=== PATIENT | female | born 1950 | race Asian ===

== ENCOUNTER → 2021-02-23 10:12 | Outpatient (CLI) | payer MEDICARE, SELFPAY ==
[2021-02-23 12:12] LABS: COVID19 -Nasal RAPID Negative (Negative)
== END ==
PROVIDERS: PCP Registered Nurse; Visit Provider Surgery
DX: Z01.812 Encounter for preprocedural laboratory examination (principal); Z20.822 Contact with and (suspected) exposure to COVID-19
CPT/HCPCS: 87635; C9803

== ENCOUNTER 2021-02-25 11:52 | Day surgery (SDC) | payer MEDICARE, SELFPAY ==
--- NOTE | 2021-02-25 | PATH_ITS ---
[facility] Accession Number: [id number] . 01 Material submitted: . PART A: colon - ASCENDING COLON PART B: colon - TRANSVERSE COLON . 02 Diagnosis: A. Ascending Colon, Biopsy: Tubular adenoma. . B. 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 Please see comment. . [facility] 03/02/2021 1613 Local . 02 Comment: B. Surveillance guidelines recommend that a sessile serrated adenoma with cytological dysplasia should be treated similar to an advanced adenoma. Complete polypectomy and shortened surveillance interval are recommended. . 02 Electronically signed: . Jacqueline Lopez MD, Pathologist NPI- [id number] . 01 Gross description: . Part A: ASCENDING COLON: Received in formalin are multiple fragment(s) of simental, soft tissue measuring 1.7 x 0.8 x 0.5 cm in aggregate submitted entirely in 1 cassette(s) Part B: TRANSVERSE COLON: Received in formalin are 5 fragment(s) of simental, soft tissue measuring 0.7 x 0.4 x 0.2 cm to 0.3 x 0.2 x 0.1 cm submitted entirely in 1 cassette(s) /QBJ 02/27/2021 0605 Local . 02 Pathologist provided ICD-10: D12.2, D12.3 . 02 CPT . 978855, 497765 Performed at: 01 [facility] [address] [id number] MD Jimmy Miramontes MD Phone: [phone] Performed at: 02 [facility] [address] [place] [id number] MD Jacqueline Lopez MD Phone: [phone]
[2021-02-25] MEDS: LACTATED RINGERS 1,000 ML 200 ML IV (12:18)
[2021-02-25 12:19] VITALS: BP 147/75; PULSE 80; RESP 18; TEMP 37; O2SAT 98; BMI 28.3
--- NOTE | 2021-02-25 13:12 | P.HP_ITS ---
History of Present Illness History of Present Illness Date Patient Seen: 02/25/21 Time Patient Seen: 13:13 Chief complaint: Screening colonoscopy Narrative: The patient presents for colorectal sreening. She had previous colonoscopy 5 years ago demonstrated benign polyps. No personal or family history of colon cancer. On further history denies any recent gastrointestinal symptoms. No nausea, vomiting, abdominal pain, loss of appetite, unexplained weight loss, change in bowel habits, diarrhea, constipation, melena, hematochezia, or bright red blood per rectum. Patient History Medical History (Updated 12/30/20 @ 19:38 by Nadeen Dale) Colon polyps Dyspareunia Screening for malignant neoplasm of colon Vaginal dryness Family & Social History Family History (Updated 12/30/20 @ 19:39 by Nadeen Dale) Father Diabetes mellitus Stroke Social History: household members none Tobacco & Substance use: Smoking Status Never smoker alcohol intake never Substance Use Type does not use Meds Home Medications and Allergies Home Medications Medication Instructions Recorded Confirmed Type atorvastatin 80 mg tablet 80 mg PO BEDTIME 12/24/20 02/25/21 History fluticasone propionate 50 2 spray INTRANASAL DAILY 12/24/20 02/25/21 History mcg/actuation nasal spray,suspension glipizide 10 mg tablet 10 mg PO BID 12/24/20 02/25/21 History losartan 50 mg tablet 50 mg PO DAILY 12/24/20 02/25/21 History magnesium chloride 71.5 mg 71.5 mg PO BID 12/24/20 02/25/21 History (magnesium chloride) tablet,delayed release omeprazole 20 mg capsule,delayed 20 mg PO DAILY 12/24/20 02/25/21 History release peg 400-propylene glycol 0.4 %-0.3 2 drp OPHTHALMIC (EYE) DAILY 12/24/20 02/25/21 History % eye drops (Systane (propylene glycol)) Allergies Allergy/AdvReac Type Severity Reaction Status Date / Time lisinopril Allergy Severe ITCHING Verified 02/25/21 12:15 Exam Vital Signs (past 8 hours): - 02/25/21 12:19 Temperature 98.6 F Pulse Rate 80 Respiratory Rate 18 Blood Pressure 147/75 H Pulse Oximetry 98 Oxygen Delivery Method Room Air Narrative Exam Narrative: Constitutional-She is oriented to person, place and time. No apparent distress Cardiovascular- regular rate, no peripheral edema Pulmonary-unlabored respiratory effort, no audible wheezing Abdominal-soft, non-tender, non-distended Assessment & Plan Assessment and plan (1) Hx of colonic polyps: Status: Acute Assessment & Plan narrative: The patient requires colorectal screening and colonoscopy is recommended. Technical details were discussed. Risks, benefits, alternatives explained. Risks including but not limited to myocardial infarction, aspiration, bleeding, pain, missed lesion, incomplete examination, need for further radiographic jesse dies, colonic perforation, and need for major abdominal surgery were discussed. All questions were answered to their satisfaction, and they are in agreement with this plan. Time Spent With Patient Critical Care time: I spent a total of [] minutes of critical care time on this patient's care today; this time is exclusive of procedural time.
[2021-02-25] MEDS: MIDAZOLAM 5 MG/5 ML VIAL IV (13:20)
[2021-02-25] MEDS: fentaNYL 250 MCG/5 ML INJ IV (13:20)
--- NOTE | 2021-02-25 13:52 | PM.OP.COLON ---
Operative Date/Time/Diagnoses Date of procedure: 02/25/21 Time of procedure: 13:52 Pre-op diagnosis: personal history of colonic polyps Post-op diagnosis: same Procedure & Clinicians Study performed: colonoscopy Same procedure as scheduled: Yes Indications: personal history of colonic polyps Surgeon: Trino Song Procedure Notes Procedure in detail: Medications: Conscious sedation using *mg IV midazolam and *mcg IV of fentanyl The history and physical was performed/updated and the patient is ASA class is *. The procedure was discussed in detail with the patient. Potential risks complications including infection, bleeding, missed diagnosis, perforation, need for surgery, and were explained. Their questions were answered and informed consent was obtained. Patient was brought to the procedure room and placed standard monitoring equipment. The patient's vital signs were monitored continuously throughout the entire procedure. Prior to starting time-out was performed. The patient was placed in the left lateral recumbent position. Procedural sedation was administered. Examination began with a thorough inspection of the perianal area there was no evidence of fissures, fistulae, external hemorrhoids or cutaneous malignancy. The colonoscopy scope was then placed into the anal canal and was advanced to the cecum, which was identified by the ileocecal valve, the appendiceal orifice and the confluence of the taenia. The scope was then slowly withdrawn examining colon thoroughly in all directions, irrigating it of any residual stool. FINDINGS 1. 5 mm polyp ascending colon removed with cold snare 2. 3 mm polyps in the transverse colon removed with combination of cold snare and biopsy forceps x3 polyps The patient tolerated the procedure well. They will be discharged once criteria are met. The prep was of good/excellent quality. The withdrawl time was 12minutes. The sedation time was 25 minutes. Specimen(s): other (Transverse and ascending colon polyps) Complications: none Impression: Colonic polyps Post-procedure Recommendations: Colonoscopy in 5 years Disposition: same day surgery
[2021-02-25 13:55] VITALS: BP 133/67; PULSE 72; RESP 15; TEMP 36.3; O2SAT 98
[2021-02-25 14:00] VITALS: BP 125/63; PULSE 75; RESP 16; O2SAT 98
[2021-02-25 14:05] VITALS: BP 116/59; PULSE 74; RESP 16; O2SAT 98
[2021-02-25 14:15] VITALS: BP 132/72; PULSE 78; RESP 16; TEMP 36.4; O2SAT 98
[2021-02-25 14:33] VITALS: BP 144/78; PULSE 70; RESP 14; TEMP 36.3; O2SAT 98
== END 2021-02-25 14:50 | disposition home or self-care (01) ==
PROVIDERS: PCP Registered Nurse; Referring Provider Surgery; Visit Provider Surgery
PROC: 0DJD8ZZ Inspection of Lower Intestinal Tract, Via Natural or Artificial Opening Endoscopic (ICD-10-PCS; CPT 45378; principal; 2021-02-25 13:45)
DX: Z12.11 Encounter for screening for malignant neoplasm of colon (principal); Z86.010 Personal history of colon polyps; D12.2 Benign neoplasm of ascending colon; D12.3 Benign neoplasm of transverse colon
CPT/HCPCS: 45385; 45380; 99152; 99153; J2250; J3010

== ENCOUNTER 2022-11-01 12:33 | Day surgery (SDC) | payer OTHER, SELFPAY ==
--- NOTE | 2022-11-01 | PATH_ITS ---
[facility] Accession Number: [id number] No. of containers..04 Tissue . 01 Material submitted: . PART A: rectum - RECTAL POLYP PART B: colon - TRANSVERSE COLON POLYP PART C: colon - DESCENDING COLON POLYP PART D: colon - SIGMOID COLON POLYP . 01 Diagnosis: A. Rectal Polyp: Hyperplastic polyp. . B. Transverse Colon Polyp: Tubular adenoma. . C. Descending Colon Polyp: Tubular adenoma. . D. Sigmoid Colon Polyp: Traditional serrated adenoma. [facility] 11/09/2022 1311 Local . 01 Electronically signed: . Yuri See MD, PhD, Pathologist NPI- [id number] . 01 Gross description: . Part A: RECTAL POLYP: Received in formalin is 1 fragment(s) of simental, soft tissue measuring 0.3 x 0.2 x 0.2 cm submitted entirely in 1 cassette(s) Part B: TRANSVERSE COLON POLYP: Received in formalin are 2 fragment(s) of simental, soft tissue measuring 0.2 x 0.2 x 0.1 cm to 0.4 x 0.3 x 0.2 cm submitted entirely in 1 cassette(s) Part C: DESCENDING COLON POLYP: Received in formalin are 3 fragment(s) of simental, soft tissue measuring 0.1 x 0.1 x 0.1 cm to 0.4 x 0.3 x 0.2 cm submitted entirely in 1 cassette(s) Part D: SIGMOID COLON POLYP: Received in formalin are 2 fragment(s) of simental, soft tissue measuring 0.1 x 0.1 x 0.1 cm to 0.3 x 0.3 x 0.3 cm submitted entirely in 1 cassette(s) /URSULA 11/03/2022 0040 Local . 01 Pathologist provided ICD-10: K62.1, D12.6 . 01 CPT . 523683, 022604, 191753, 111613 Specimen Comment: A courtesy copy of this report has been sent to [phone] Performed at: 01 [facility] [address], [place], [place] [id number] MD Jimmy Miramontes MD Phone: [phone]
[2022-11-01 13:17] VITALS: BP 147/80; PULSE 82; RESP 16; TEMP 36.2; O2SAT 97; BMI 29.5
[2022-11-01] MEDS: LACTATED RINGERS 1,000 ML 42 ML IV (13:25)
--- NOTE | 2022-11-01 14:15 | PM.HP.1 ---
History of Present Illness History of Present Illness Date Patient Seen: 11/01/22 Chief complaint: Dx Colonoscopy w/poss bx Narrative: 72-year-old woman with a history colonic polyps here for screening colonoscopy. Last colonoscopy February 2021 polyp within the transverse colon demonstrated sessile serrated adenoma cytological dysplasia. She was scheduled for short interval follow-up which fell through during [facility]. [facility] Medical History Colon polyps Dyspareunia Screening for malignant neoplasm of colon Vaginal dryness Family History Father Diabetes mellitus Stroke Social History marital status: household members: none lives independently: Yes occupational status: previously employed Smoking Status: Never smoker alcohol intake: never substance use type: does not use Meds Home Medications and Allergies Home Medications Medication Instructions Recorded Confirmed Type atorvastatin 80 mg tablet 80 mg PO BEDTIME 12/24/20 11/01/22 History fluticasone propionate 50 2 spray intranasal DAILY 12/24/20 11/01/22 History mcg/actuation nasal spray,suspension glipizide 10 mg tablet 10 mg PO BID 12/24/20 11/01/22 History losartan 50 mg tablet 50 mg PO DAILY 12/24/20 11/01/22 History magnesium chloride 71.5 mg 71.5 mg PO BID 12/24/20 11/01/22 History (magnesium chloride) tablet,delayed release omeprazole 20 mg capsule,delayed 20 mg PO DAILY 12/24/20 11/01/22 History release metformin 500 mg tablet 1,000 mg PO BID 03/22/21 11/01/22 History Compounded Estradiol 0.0125% See Rx Instructions .Route 12/14/21 11/01/22 Rx .COMPLEX #30 grams Allergies Allergy/AdvReac Type Severity Reaction Status Date / Time lisinopril Allergy Severe ITCHING Verified 11/01/22 13:08 Exam Vital Signs (past 8 hours): - 11/01/22 13:17 Temperature 97.2 F L Pulse Rate 82 Respiratory Rate 16 Blood Pressure 147/80 H Pulse Oximetry 97 Oxygen Delivery Method Room Air Oxygen Delivery Method Room Air Narrative Exam Narrative: General adult woman alert oriented no acute distress Abdomen soft nontender nondistended Assessment & Plan Assessment and plan (1) Hx of colonic polyps: Status: Acute Assessment & Plan narrative: The patient requires colorectal screening and colonoscopy is recommended. Technical details were discussed. Risks, benefits, alternatives explained. Risks including but not limited to myocardial infarction, aspiration, bleeding, pain, missed lesion, incomplete examination, need for further radiographic studies, colonic perforation, and need for major abdominal surgery were discussed. All questions were answered to their satisfaction, and they are in agreement with this plan.
--- NOTE | 2022-11-01 14:45 | PM.OP.COLON ---
Operative Date/Time/Diagnoses Date of procedure: 11/01/22 Time of procedure: 14:45 Pre-op diagnosis: Personal history of colonic polyps Post-op diagnosis: other (Colonic polyps x 3) Procedure & Clinicians Study performed: Colonoscopy and polypectomy Same procedure as scheduled: Yes Indications: 72-year-old woman personal history of colonic polyps here for screening colonoscopy. Surgeon: Trino Song Procedure Notes Procedure in detail: The history and physical was performed/updated and the patient is ASA class is 2. The procedure was discussed in detail with the patient. Potential risks complications including infection, bleeding, missed diagnosis, perforation, need for surgery, and were explained. Their questions were answered and informed consent was obtained. Patient was brought to the procedure room and placed standard monitoring equipment. The patient's vital signs were monitored continuously throughout the entire procedure. Prior to starting time-out was performed. The patient was placed in the left lateral recumbent position. Procedural sedation was administered by anesthesia. Examination began with a thorough inspection of the perianal area there was no evidence of fissures, fistulae, external hemorrhoids or cutaneous malignancy. The colonoscopy scope was then placed into the anal canal and was advanced to the cecum, which was identified by the ileocecal valve, the appendiceal orifice and the confluence of the taenia. The scope was then slowly withdrawn examining colon thoroughly in all directions, irrigating it of any residual stool. Transverse colon-flat 5 mm polyp removed. Saline was injected into the mucosa to elevate the polyp and then it was removed with cold snare. Colon was marked with methylene blue distal to the lesion. Descending colon-2 (3 mm polyps removed with biopsy forceps) Sigmoid colon-3 mm polyp removed with biopsy forceps The patient tolerated the procedure well. They will be discharged once criteria are met. The prep was of good/excellent quality. The withdrawl time was 15 minutes. Specimen(s): other (transverse, descending and sigmoid polyps) Complications: none Impression: colonic polyps x 4 Post-procedure Plan for aftercare: Follow up is dependent on pathology findings Disposition: same day surgery
[2022-11-01 14:46] VITALS: BP 89/51; PULSE 76; RESP 18; TEMP 36.2; O2SAT 95
[2022-11-01 14:51] VITALS: BP 92/52; PULSE 77; RESP 16; O2SAT 99
[2022-11-01 14:56] VITALS: BP 101/55; PULSE 74; RESP 18; TEMP 36.4; O2SAT 100
[2022-11-01 15:05] VITALS: BP 160/94; PULSE 87; RESP 16; O2SAT 100
== END 2022-11-01 15:30 | disposition home or self-care (01) ==
PROVIDERS: PCP Internal Medicine; Referring Provider Surgery; Visit Provider Surgery
PROC: 0DJD8ZZ Inspection of Lower Intestinal Tract, Via Natural or Artificial Opening Endoscopic (ICD-10-PCS; CPT 45378; principal; 2022-11-01 14:15)
DX: Z12.11 Encounter for screening for malignant neoplasm of colon (principal); Z86.010 Personal history of colon polyps; D12.3 Benign neoplasm of transverse colon; D12.4 Benign neoplasm of descending colon; D12.5 Benign neoplasm of sigmoid colon; K62.1 Rectal polyp
CPT/HCPCS: 45381; 45385; 45380; J2704

== ENCOUNTER → 2023-08-08 15:39 | Outpatient (CLI) | payer MEDICARE, SELFPAY ==
[2023-08-10 13:36] LABS: Candida species Positive (Negative); Gardnerella vaginalis Negative (Negative); Trichomoas vaginalis Negative (Negative)
== END ==
PROVIDERS: PCP Internal Medicine; Visit Provider Obstetrics & Gynecology
DX: N89.8 Other specified noninflammatory disorders of vagina (principal)
CPT/HCPCS: 87480; 87510; 87660

== ENCOUNTER → 2023-09-13 15:16 | Outpatient (CLI) | payer MEDICARE, SELFPAY ==
[2023-09-15 14:13] LABS: Candida species Positive (Negative); Gardnerella vaginalis Negative (Negative); Trichomoas vaginalis Negative (Negative)
== END ==
PROVIDERS: PCP Internal Medicine; Visit Provider Obstetrics & Gynecology
DX: N39.0 Urinary tract infection, site not specified (principal); N89.8 Other specified noninflammatory disorders of vagina
CPT/HCPCS: 87077; 87086; 87186; 87480; 87510; 87660